=== PATIENT | female | born 1965 | race Caucasian/White ===

== ENCOUNTER → 2020-05-20 | Outpatient (CLI) | payer BC ==
[~2020-05-20] VITALS: Ht 162.6 cm; Wt 56.7 kg
[~2020-05-20] MED LIST: ASTEPRO PO; BIOTIN1 MG PO; DROSPIRENONE-E1 EAC1 PO; FAMOTIDINE 20 M20 MG PO; FLONASE 0.05%50 MCG NARES; HYDRO EYE PO; PROBIOTIC1 EAC7 PO; RELAFEN500 M1 PO; VITAMIN D350 MCG PO; XYZAL5 MG PO; [UNRECOGNIZED DRUG - OTHER]
--- NOTE | ~2020-05-20 | HPC ---
[facility] [address] [place] [address] PAIN MANAGEMENT CONSULTATION Name: ALFREDO BRUSH Room #: REG [facility].#: [id number] Admission: 05/20/20 Attend Phys: Jarod Smalls DO Discharge: Date of : 69 Report #: [id number] THIS REPORT FOR: cc: Shaylee Glaser Ellen Kay RNP Johnson, James E. DO ~ DATE OF SERVICE: 05/20/2020 REFERRING PHYSICIAN: Ana Glaser, Nurse Practitioner CHIEF COMPLAINT: Neck pain. HISTORY OF PRESENT ILLNESS: As you know, the patient is a very pleasant 54-year-old female who reports longstanding history of bilateral neck pain. She states the pain began somewhere in 2005. She denies injury or trauma. She has trialled [id number] medications as well as chiropractic manipulation without much in the way of benefit. She has undergone cervical epidural injections x 3 with minimal benefit. This was done years ago. She also underwent what appears to be an intra-articular facet injection, which according to the patient caused extreme pain and no resolution of symptoms. She is "just been putting up with it" until just recently where her symptoms have become intense enough that she was sent for evaluation from a neurosurgical standpoint. The patient's new MRI showed a significant facet arthropathy changes at C3-C4, C4-C5, C5-C6, C6-C7 with central canal stenosis noted at C5-C6 and C6-C7. She was advised of the treatment options that could be provided through a surgical standpoint, but also then requested to treat to be seen to address cervical facet arthropathy as the source of the patient's symptoms at present to determine if her symptoms would be amenable. If the patient does not notice prolonged benefit, then surgical options may be entertained. She has been referred to our service to discuss treatment options for cervical facet arthropathy. The patient indicates her pain is continuous, describes the pain as aching, gnawing, throbbing, sharp and stabbing. She places current pain score 8/10, daily average at 7-8/10, worst pain has been 9/10. The patient states that sitting, sleeping and stretching tends to exacerbate symptoms, nothing tends to improve pain. She has been referred to our service to discuss treatment options for cervical spondylosis without current radiculopathy. PAST MEDICAL HISTORY: 1. Degenerative joint disease. 2. Osteoarthritis. PAST SURGICAL HISTORY: 1. Surgery to the kidney in 1970 due to blockage. 2. in utero surgery 2003. [address] [address] PAIN MANAGEMENT CONSULTATION Name: ALFREDO BRUSH Room #: REG [facility].#: [id number] Admission: 05/20/20 Attend Phys: Jarod Smalls DO Discharge: Date of : 69 Report #: [id number] 3. section. SOCIAL HISTORY: The patient denies tobacco, IV or illicit drug use. Admits to 2 alcohol beverages per day. She is currently employed in human resources. She is working, not receiving workmen's compensation nor is she trying to obtain disability benefits. She is not in litigation in regards to pain. She is accompanied by her significant other at today's appointment. REVIEW OF SYSTEMS: Positive for wearing corrective eyewear, nocturia, rash and itching, neck pain. All other review of systems negative per 12-point review of systems other than those listed in history of present illness. Pain impact score 52/70, severe interference of daily activities secondary to pain. ALLERGIES: PENICILLIN AND BACTRIM. CURRENT MEDICATIONS: Biotin 1 tab per day, vitamin D3 50 mcg once a day, probiotic 1 tab per day, famotidine 20 mg per day, fluticasone 1 spray each nostril twice a day, Xyzal 5 mg once a day, meloxicam 15 mg once a day. IMAGING: MRI cervical spine obtained 04/08/2020 shows C2-C3 with left facet hypertrophy and narrowing of the left neural foramen. Thecal sac is 1.2 cm. C3-C4 shows marked bilateral facet arthropathy, narrowing of the right neural foramen greater than left, thecal sac measuring 1 mm. C4-C5, marked left facet hypertrophy with marked narrowing of the left neural foramen. Disk osteophyte complex with thecal sac measuring 1.2 cm. C5-C6 large broad-based central disk osteophyte complex with effacement of the ventral thecal sac and compression of the cord. Thecal sac measuring 0.8 cm. C6-C7 central/right paracentral disk osteophyte complex with marked compression of the cord, narrowing of the neural foramen. Central canal measuring 6 mm. C7-T1 intervertebral disk and facets as well as foramen appear normal. Thecal sac measuring 1.4 cm. PHYSICAL EXAMINATION: VITAL SIGNS: Blood pressure 142/88, pulse 82, respiratory rate 14 and unlabored. The patient is 100% on room air. Height 5 feet 4 inches tall, weight 125 pounds, BMI calculated 21.4. GENERAL: Well-developed, well-nourished, well-hydrated 54-year-old female appearing her stated age. She is placing current pain score at 8/10. HEENT: Normocephalic, atraumatic. Pupils equal, round and reactive. NEUROLOGIC: Speech is fluent. The patient is wearing a mask in compliance with COVID-19 regulations. LUNGS: Appear clear. No wheezes, rhonchi, no rales. CARDIOVASCULAR: Regular. No appreciable gallop, no rub. ABDOMEN: Soft, nontender, nondistended. EXTREMITIES: Show no clubbing, no cyanosis, and no edema. [facility] [address] [place] [address] PAIN MANAGEMENT CONSULTATION Name: BRUSHALFREDO Room #: REG NUBIA Carol.#: [id number] Admission: 05/20/20 Attend Phys: Jarod Smalls DO Discharge: Date of : 69 Report #: [id number] MUSCULOSKELETAL: Upper extremity strength appears equal and symmetrical 5/5. Muscle bulk and tone equal and symmetrical in comparing upper extremities. She is intact to light touch from C5 through T1 dermatomes. Deep tendon reflexes equal and symmetrical at biceps, brachialis and triceps. There is tenderness to palpation over the cervical spine, beginning at about the C3-C4 interspace and all the way down to the C6 level. Deep palpation over the upper facets causes intensification of pain radiating over the top of her head in a classic occipital neuralgia type distribution. Cervical provocation testing is met with increasing cervical pain. There is noted crepitus with movement. Deep palpation over the facet joints causes typical pain generation. ASSESSMENT: 1. Severe cervical spondylosis without current radiculopathy. 2. Neural foraminal stenosis of the cervical spine. 3. Central canal stenosis of the cervical spine. 4. Cervical facet arthropathy. 5. Chronic intractable pain. PLAN: 1. Based on today's physical exam and history the patient has provided, the description the patient uses in regards to pain as well as location of symptoms, it would appear her current symptoms related to the facet arthropathy noted on the physical exam as well as the imaging study of 03/2020. The patient does have fairly significant central canal stenosis, though at this point does not appear to be having any sequelae of this finding. The symptoms the patient is experiencing at present appear to be related more to the facet joints. We discussed with the patient the treatment options we have available for cervical facet arthropathy, the following was discussed with the patient today. We discussed physical therapy, stretching exercises and traction techniques as a treatment option. This will improve not only facet arthropathy pain, but any neural foraminal symptoms that she may be experiencing. This would have to be done on a fairly consistent basis. We discussed with the patient treatment options that would include adjustments in medication management. Currently, she is taking meloxicam, but has not noted much in the way of improvement and an adjustment in his medication could be quite beneficial. We also discussed if she begins to experience neuropathic symptoms, the addition of neuropathic medications as well. We discussed with the patient intra-articular facet injections as well as radiofrequency lesioning of the medial branch nerves of the cervical spine. Ultimately we discussed surgical options, which based on the marked changes noted in the facet joints at all levels will likely be necessary. After reviewing the risks and benefits of all the proposed treatment options, the patient chose to begin with intra-articular facet injections. The patient will require authorization before she could undergo bilateral intra-articular cervical facet injections at 3 levels left and 3 levels on the [address] [address] PAIN MANAGEMENT CONSULTATION Name: ALFREDO BRUSH Room #: REG NUBIA Ramirez#: [id number] Admission: 05/20/20 Attend Phys: Jarod Smalls DO Discharge: Date of : 69 Report #: [id number] right. We will begin this authorization process immediately. We are hopeful that we can obtain this authorization next week, which actually works well for the patient as she has time next week to take off after the procedure, so that she can rest and relax. We have tentatively set the patient for an appointment next Monday, but can be adjusted to Monday if the patient's schedule does not allow. We will adjust based on her schedule as we are open Monday and Monday of next week to assist. We will gain the authorizations over the intervening couple of days and will have that authorization available for her to undergo the procedure as requested by Neurosurgery. 2. We have adjusted her medications today in hopes of improving pain. We have asked the patient to discontinue the use of meloxicam and in place start using nabumetone 500 mg 3 times a day with meals. I have advised the patient to take this medication with meals to reduce the potential of development of dyspepsia. She is to watch for any other side effects. If she notes any side effects, discontinue immediately. I am hopeful the patient will see good and prolonged benefit with this medication, which would indicate further proof that the facet arthropathy is the source of the patient's pain. The patient will contact with our clinic with any questions or concerns. 3. We plan to see the patient back in followup visit next week to undergo intra-articular facet injections bilaterally in the cervical region. We will keep you apprised of response to treatment. We wish to thank nurse practitioner, Ana Glaser for the opportunity to see the patient in consultation. We will keep you apprised of her response to treatment as we address her facet arthropathy symptoms and any development of central canal stenosis. Again, we wish to thank you for the opportunity to see this patient in consultation. By: [id number] Jarod Smalls DO /derek
[2020-05-20 15:33] VITALS: BP 142/88
--- NOTE | 2020-05-20 15:59 | NUR ---
Pain Clinic Assessment: 1. History of Osteoarthritis: NECK History of Rheumatoid Arthritis: Not Applicable 2. Height: 5 ft. 4 in. 162.6 cm. Weight: 125.0 lb. oz. 56.700 kg. Patient's BMI: 21.4 3. Vital Signs: BP: 142/88 Pulse: 82 Resp: 14 Temp: 02 Sat: 100 ECG Mon: 4. Pain Intensity: 8 5. Fall Risk: Dizziness: N Needs help standing or walking: N Fallen in the last 3 months: N Fall risk comments: 6. Patient on Blood Thinner: None 7. History of Hypertension: N 8. Opioid Therapy greater than 6 weeks: N Opiate Contract Signed: 9. Risk Assessment Tool Provided: 10. Functional Assessment Tool: LOW 11. Recreational Drug Use: Never Drug Type: Tobacco Use: Never Smoker Tobacco Type: Amount or Packs/day: How Many Years: Alcohol Use: Yes Frequency: Daily Quant: 2
== END ==
LOC: PAIN 06:55
PROVIDERS: ATTEND Anesthesiology Pain Medicine
DX: M48.02 Spinal stenosis, cervical region (principal); G89.29 Other chronic pain; M47.812 Spondylosis without myelopathy or radiculopathy, cervical region; Z88.8 Allergy status to other drugs, medicaments and biological substances; Z79.899 Other long term (current) drug therapy

== ENCOUNTER → 2020-05-27 | Outpatient (CLI) | payer BC ==
[~2020-05-27] VITALS: Ht 193 cm; Wt 64.0 kg
[2020-05-27 15:20] VITALS: BP 164/88
--- NOTE | 2020-05-27 15:24 | NUR ---
Pain Clinic Assessment: 1. History of Osteoarthritis: NECK History of Rheumatoid Arthritis: Not Applicable 2. Height: 6 ft. 4 in. 193.0 cm. Weight: 141.0 lb. oz. 63.957 kg. Patient's BMI: 17.2 3. Vital Signs: BP: 164/88 Pulse: 91 Resp: 18 Temp: 02 Sat: 99 ECG Mon: 4. Pain Intensity: 7 5. Fall Risk: Dizziness: N Needs help standing or walking: N Fallen in the last 3 months: N Fall risk comments: 6. Patient on Blood Thinner: None 7. History of Hypertension: N 8. Opioid Therapy greater than 6 weeks: N Opiate Contract Signed: 9. Risk Assessment Tool Provided: LOW-0 10. Functional Assessment Tool: 11. Recreational Drug Use: Never Drug Type: Tobacco Use: Never Smoker Tobacco Type: Amount or Packs/day: How Many Years: Alcohol Use: Yes Frequency: Quant:
--- NOTE | 2020-06-02 07:44 | HPC ---
[facility] [place] [address] PAIN MANAGEMENT CONSULTATION Name: ALFREDO BRUSH Room #: REG [facility] Carol.#: [id number] Admission: 05/27/20 Attend Phys: Jarod Smalls DO Discharge: Date of : 69 Report #: [id number] THIS REPORT FOR: cc: Shaylee Glaser Ellen Kay RNP Johnson, James E. DO ~ DATE OF SERVICE: 05/27/2020 REFERRING NURSE PRACTITIONER: ABIDA Sinclair CHIEF COMPLAINT: Neck pain. HISTORY OF PRESENT ILLNESS: As you know, the patient is a 54-year-old female with longstanding history of bilateral neck pain. The patient reports pain began somewhere in 2005. She has trialled conservative treatment options, but continued to fail those options over time. She sought further evaluation and was sent for MRI. MRI shows significant arthritic changes and the patient was then referred to Neurosurgery to discuss surgical options. The patient was seen by Neurosurgery and advised to trial intra-articular C4-C5 facet injections to determine whether or not she would see improvement in symptoms prior to looking toward surgical options. She was seen in consultation 05/20/2020 and provided today's appointment to undergo bilateral C4-C5 intraarticular facet injections under fluoroscopic guidance to address severe cervical spondylosis without current radiculopathy. She returns today with pain level of 7/10. ALLERGIES: PENICILLIN AND BACTRIM. CURRENT MEDICATIONS: Biotin, vitamin D3, probiotic, famotidine, fluticasone, meloxicam. SOCIAL HISTORY: The patient denies tobacco, IV or illicit drug use. Admits to 2 alcohol beverages per day. She is currently employed in human resources working, not receiving workmen's compensation, unaccompanied today. IMAGING: No new imaging available. PHYSICAL EXAMINATION: VITAL SIGNS: Blood pressure 164/88, pulse 91, respiratory rate 18 and unlabored. The patient is 99% on room air, height 6 feet 4 inches tall, weight 141.0 pounds, BMI calculated 17.2. GENERAL: Well-developed, well-nourished, well-hydrated 54-year-old female appearing stated age. She is placing current pain score at 7/10. HEENT: Normocephalic, atraumatic. Pupils equal, round, and reactive. The patient is wearing a mask in compliance with COVID-19 regulations. EXTREMITIES: Show no clubbing, no cyanosis, and no edema. MUSCULOSKELETAL: Cervical provocation testing is met with increase in pain. [address] [address] PAIN MANAGEMENT CONSULTATION Name: ALFREDO BRUSH Room #: REG [facility].#: [id number] Admission: 05/27/20 Attend Phys: Jarod Smalls DO Discharge: Date of : 69 Report #: [id number] Deep palpation over the cervical facets causes intensification of symptoms consistent with facet arthropathy pain. She remains intact to light touch from C5 through T1 dermatomes. ASSESSMENT: 1. Severe cervical spondylosis without current radiculopathy. 2. Neural foraminal stenosis of the cervical spine. 3. Central canal stenosis of the cervical spine. 4. Cervical facet arthropathy. 5. Chronic intractable pain. PLAN: 1. The patient returns today in followup visit to undergo bilateral C4-C5 intraarticular facet injections under fluoroscopic guidance. We did discuss with the patient that the plan was to undergo bilateral C3-C4, C4-C5, and C5-C6 injections, though the patient has considered the options and wishes to address specifically the C4-C5 facet joints, which appear to be the main promoter of her current pain. She is hopeful that she will see benefit without having undergo 6 cervical injections on a single appointment. We have agreed with the patient that a more directed therapy will provide Neurosurgery with more information as well as provide us with information in regard to what areas causing symptoms and to what degree, though symptoms are being generated from the specific area. By addressing the C4-C5 level, which appears to be the most significant arthritic changes on the patient's cervical region, we can determine whether or not this is the main generator and surgery needs to be performed at that level versus symptoms are related more to the spinal stenosis at the levels below and decompression would be necessary. The patient is agreeable to undergo more directed injections today with plans to expand our procedures if necessary. She has been advised risks and benefits of the procedure, states understood and wished to proceed. 2. No medication changes made at today's visit. The patient will continue current medical therapy as prior prescribed. 3. We plan to see the patient back in followup visit on an as needed basis for possible next in the series of injections. She will contact our clinic if her symptoms do return. PROCEDURE NOTE DESCRIPTION OF PROCEDURE: Bilateral C4-C5 intraarticular facet injections under fluoroscopic guidance. This is the first cervical facet joint injection the patient is undergoing. After obtaining written consent, the patient was taken back to the fluoroscopy suite. The patient was placed in a prone position with separate pillows under the chest and the forehead to decrease the cervical lordosis. The mouth was [address] [address] PAIN MANAGEMENT CONSULTATION Name: ALFREDO BRUSH Room #: REG NUBIA Ramirez#: [id number] Admission: 05/27/20 Attend Phys: Jarod Jose EnriqueGuadalupe Smalls DO Discharge: Date of : 69 Report #: [id number] left free to move. The skin overlying the cervical area was prepped and draped in an aseptic fashion. The target locations on the right and left sides of the C4-C5 facet joints were established. Using a 27-gauge, 1-1/2-inch needle, skin wheals were placed using 1 mL of 1% lidocaine over each target site. 22-gague 3.5-inch spinal needles with bent tips was directed toward each of targeted facet joint(s) ventrally until bone was contacted on the posterior aspect of the articular pillar just medial to its lateral border just inferior to the joint line at each target joint location. Touching bone initially assured that the needle was not placed too deeply. The needle was then directed superiorly, slipping into the facet joint in a ventral direction. An off lateral fluoroscopic image was obtained allowing final positioning into the posterior aspect of the joint. The needle could be seen entering the correct facet joint. After the joint space was entered and aspiration was negative for heme or CSF, 0.2 mL of Omnipaque was injected demonstrating a characteristic facet arthrogram. After negative aspiration for heme or CSF, 0.75 mL of a solution containing 1 mL 40 mg per mL, 40 mg total triamcinolone and 2 mL of bupivacaine 0.5% was slowly injected at the targeted facet joint(s). [place] were retracted half-way and flushed with 0.5 mL 1% lidocaine. There were no apparent complications. The patient tolerated the procedure well and was carefully escorted to the recovery room in stable condition. The VAS before the procedure was 7/10 and after the procedure was 3/10. After meeting discharge criteria, the patient was discharged home. <ELECTRONICALLY SIGNED> By: Jarod Smalls DO 06/02/20 [id number] Jarod Smalls DO /nt
== END | disposition home or self-care (01) ==
LOC: PAIN 07:02
PROVIDERS: ATTEND Anesthesiology Pain Medicine
DX: M47.812 Spondylosis without myelopathy or radiculopathy, cervical region (principal); M48.02 Spinal stenosis, cervical region; G89.29 Other chronic pain; Z98.890 Other specified postprocedural states; Z79.899 Other long term (current) drug therapy; Z88.0 Allergy status to penicillin; Z88.8 Allergy status to other drugs, medicaments and biological substances